=== PATIENT | male | born 1975 | race Caucasian/White ===

== ENCOUNTER 2023-01-09 08:55 | Outpatient (AMB) | payer OTHER, SELFPAY ==
[2023-01-09 08:58] VITALS: BP 122/90; PULSE 80; RESP 14; O2SAT 98; BMI 34.2
--- NOTE | 2023-01-09 08:58 | A.OFFVIS_ITS ---
Intake Vital Signs 01/09/23 08:58 Height 6 ft Weight 252 lb BMI 34.2 BP 122/90 H Blood Pressure Location Lt brachial Position Sitting Respiration 14 Pulse 80 Pulse Source Pulse Oximeter Pulse Oximetry (%) 98 Oxygen Delivery Method Room Air Intake Visit Reasons: Right shoulder inj per Dr. Duggan Allergies No Known Allergies Allergy (Verified 01/09/23 09:00) Medication List - Last Reconciled 01/09/23 by Yue Jackman LPN testosterone cypionate (Depo-Testosterone) 400 mg IM .2x weekly HPI Right shoulder inj per Dr. Duggan HPI Details 47-year-old male who presents today to t he office for right shoulder injection. He has a nine-month history of left shoulder pain that is described as an aching, stabbing sensation. He rates his pain at 9/10 in intensity. The pain is worse, especially at night or while reaching out, which increases the intensity to 8?9/10. When warming up for exercises or sitting on the couch, it is r elatively low, about 5/10. He also complains of right elbow pain that has been going on for a similar amount of time. He attributes these issues to excessive exercise and perhaps the sleeping position. He is unable to sleep or function normally. He is referred to us for consideration of a shoulder injection. He has completed physical therapy for his shoulder without much relief. He has also undergone chiropractic manipulation and massage therapy, with temporary moderate relief. He has had shoulder injections in the past. He has not visited OT in the past. The patient's history is notable for prior arthroscopic treatment about 12 years ago at [facility]. COUNT INCLUDES THE [facility] Medical History (Updated 01/16/23 @ 08:34 by Tarik Grove) Right elbow tendonitis Right shoulder pain Left shoulder pain Colonic polyp Erectile dysfunction Hypogonadism in male COVID-19 Surgical History (Updated 01/16/23 @ 08:25 by Tarik Grove) H/O vasectomy History of appendectomy H/O adenoidectomy Review of Systems Const All systems reviewed & are unremarkable except as noted in HPI and below Physical Exam Vital Signs: Last Vital Signs Pulse 80 01/09/23 08:58 Resp 14 01/09/23 08:58 BP 122/90 H 01/09/23 08:58 Pulse Ox 98 09/08/23 08:58 Oxygen Delivery Method Room Air 01/09/23 08:58 BMI result Body Mass Index 34.2 General: Appears afebrile. Alert and oriented. Mood and affect appropriate. Follows and participates in conversation appropriately. Respiratory effort is unlabored. Able to transition from sit to stand unassisted. Ambulates with bilaterally normal heel strike and toe off. There is a point of maximal tenderness at posteriorly behind the left shoulder. External rotation does not reproduces pain Internal rotation reproduces pain. Office Procedures Joint Injection/Drain Joint Injection/Drain Details: Left subacromial shoulder injection, ultrasound guided Primary Site: left shoulder Prep: site was prepped using aseptic technique and site was prepped using sterile technique Injected: 40 mg of, Kenalog, with 3 mL of, 0.25% bupivacaine and in the subcromial space (on left side) Approach Used: posterolateral Procedure: The patient tolerated the procedure well Coding Details: An ultrasound image of the injection was taken and stored in the permanent record. 12125 - Acromioclavicular with ultrasound guidance Procedure code (CPT) selection complete Results Reviewed Results Reviewed: 01/09/23 09:00 BUPivacaine MPF 0.5 % [Sensorcaine MPF 0.5% 10 ML] 10 ml .ROUTE .STK-MED ONE Lidocaine HCl 2 % MPF [Xylocaine 2 % MPF] 5 ml .ROUTE .STK-MED ONE Triamcinolone Acetonide [Kenalog-40] 40 mg .ROUTE .STK-MED ONE No imaging is available for review. Assessment & Plan Assessment & Plan (1) Left shoulder pain: Code(s): M25.512 - Pain in left shoulder Qualifiers: Chronicity: chronic Qualified Code(s): M25.512 - Pain in left shoulder; G89.29 - Other chronic pain Plan Patient is status post left subacromial shoulder injection, US guided. Patient tolerated procedure well and was discharged home in stable condition with discharge instructions. All questions were answered. Discussed temporary nerve stimulator as possible treatment option. A device brochure was provided to the patient. Follow up as needed via telephone or in clinic to assess response to therapy. Scribed for Dr. Duggan by Tarik Grove, medical care evaluation specialist, on 01/09/2023. I, Dr. Duggan, have personally reviewed and agree with the information entered by the scribe. Coding Level of Care Code New Pt Level 4 (81832) Diagnoses Chronic left shoulder pain M25.512; G89.29 Chronicity: chronic CPT Codes Coding - Joint 6: 35102 - Acromioclavicular with ultrasound guidance ([id number])
== END 2023-01-09 09:36 | disposition home or self-care (01) ==
PROVIDERS: PCP Internal Medicine; Visit Provider Internal Medicine
DX: M25.512 Pain in left shoulder (principal); G89.29 Other chronic pain
CPT/HCPCS: 20606; 99204

== ENCOUNTER → 2023-01-09 08:55 | Outpatient (BNVA) | payer OTHER, SELFPAY | PROVIDERS: PCP Internal Medicine; Visit Provider Internal Medicine | DX: G89.29 Other chronic pain (principal); M25.512 Pain in left shoulder | CPT/HCPCS: 20606; J3301 ==